=== PATIENT | female | born 2000 | race Caucasian/White ===

== ENCOUNTER → 2020-11-04 | Outpatient (CLI) | payer OTHER ==
[2020-11-04 15:17] LABS: HEMATOCRIT 39.8 % (36.0-47.0); HEMOGLOBIN 13.5 g/dl (12.0-15.5); MEAN CORPUSCULAR HEMOGLOBIN 30.8 pg (27.0-33.0); MEAN CORPUSCULAR HGB CONC 33.9 g/dl (32.0-36.5); MEAN CORPUSCULAR VOLUME 90.9 fl (80.0-96.0); PLATELET COUNT, AUTOMATED 321 10^3/uL (150-450); RED BLOOD COUNT 4.38 10^6/uL (4.00-5.40); WHITE BLOOD COUNT 15.7 10^3/uL (4.0-10.0)
[2020-11-04 16:35] LABS: HEPATITIS C VIRUS ABY INDEX < 0.0 INDEX (<0.8); HIV 1&2 SCREEN CENTAUR NEGATIVE (NEGATIVE)
[2020-11-04 17:12] LABS: GC DNA AMPLIFICATION NEGATIVE (NEGATIVE)
== END ==
LOC: M PLALAB 10:44
PROVIDERS: ATTEND Advanced Practice Midwife
DX: Z34.01 Encounter for supervision of normal first pregnancy, first trimester (principal)

== ENCOUNTER → 2020-12-02 | Outpatient (CLI) | payer OTHER | LOC: M PLALAB 10:58 | PROVIDERS: ATTEND Advanced Practice Midwife | DX: Z34.01 Encounter for supervision of normal first pregnancy, first trimester (principal); Z3A.12 12 weeks gestation of pregnancy ==

== ENCOUNTER → 2021-01-27 | Outpatient (CLI) | payer OTHER ==
--- NOTE | 2021-01-27 12:47 | REP ---
INDICATION: ANATOMY. COMPARISON: None. TECHNIQUE: Transabdominal scanning FINDINGS: Multiple ultrasonographic images of the gravid uterus shows a single living intrauterine gestation in the transverse presentation. The placenta is anterior and not low-lying. The cervix measures 3.6 cm length and is closed. Doppler interrogation of the heart shows a heart rate of 149 beats per minute. The subjective amniotic fluid volume is within normal limits. BPD: 4.9 cm 21 weeks 0 days HC: 18.0 cm 20 weeks 3 days AC: 14.6 cm 19 weeks 6 days FL: 3.4 cm 20 weeks 4 days The estimated weight is 343 g which is at the 44th percentile for a 20 week 2 day gestational age. The anatomical structures seen to be unremarkable are as follows: Thalami, cavum septum pellucidum, cerebellum, cisterna magna, cerebral ventricles, spine, kidneys, urinary bladder, stomach, cord insertion, three-vessel umbilical cord, upper lip, and extremities. Four-chamber heart and ventricular outflow tracts were suboptimally visualized. IMPRESSION: Single living intrauterine gestation as described above with an estimated gestational age of 20 weeks 3 days via composite criteria and an estimated date of delivery of 06/13/2021 by today's exam. No anomalies were detected, however, recommend a follow-up examination for optimal visualization of a four-chamber heart and ventricular outflow tracts. <Electronically signed by Nimesh Rodriguez > 01/27/21 [id number]
== END ==
LOC: M WHC 10:42
PROVIDERS: ATTEND Advanced Practice Midwife
DX: Z36.89 Encounter for other specified antenatal screening (principal); Z3A.16 16 weeks gestation of pregnancy

== ENCOUNTER → 2021-02-18 | Outpatient (CLI) | payer OTHER ==
--- NOTE | 2021-02-18 11:14 | REP ---
INDICATION: F/U ANATOMY COMPARISON: 01/27/2021 TECHNIQUE: Transabdominal obstetrical ultrasound with color Doppler evaluation. FINDINGS: Examination demonstrates a single live intrauterine in variable presentation. motion is identified by technologist. Placenta is noted anterior and grade 0 without evidence for placenta previa or abruption. Amniotic fluid volume is normal. Cervix measures 3.5 cm in length and appears closed.. Selected gestational age: 23 weeks 3 days with PAOLO 06/14/2021. Gestational age by current measurements 23 weeks 3 days with PAOLO 06/14/2021. FHR equals 143 beats per minute. Estimated weight 600 grams (45thpercentile). Anatomical assessment demonstrates normal structures including four-chamber heart/ventricular outflow tracts.. IMPRESSION: Single live intrauterine in variable presentation demonstrating appropriate interval growth. In conjunction with prior examination anatomical assessment is complete and normal. <Electronically signed by Noman Warren > 02/18/21 [id number]
== END ==
LOC: M WHC 09:45
PROVIDERS: ATTEND Advanced Practice Midwife
DX: Z34.02 Encounter for supervision of normal first pregnancy, second trimester (principal)

== ENCOUNTER → 2021-03-29 | Outpatient (CLI) | payer OTHER ==
[2021-03-29 15:44] LABS: HEMATOCRIT 37.7 % (36.0-47.0); HEMOGLOBIN 12.7 g/dl (12.0-15.5); MEAN CORPUSCULAR HEMOGLOBIN 31.6 pg (27.0-33.0); MEAN CORPUSCULAR HGB CONC 33.7 g/dl (32.0-36.5); MEAN CORPUSCULAR VOLUME 93.8 fl (80.0-96.0); PLATELET COUNT, AUTOMATED 286 10^3/uL (150-450); RED BLOOD COUNT 4.02 10^6/uL (4.00-5.40); WHITE BLOOD COUNT 11.6 10^3/uL (4.0-10.0)
== END ==
LOC: M PLALAB 11:14
PROVIDERS: ATTEND Advanced Practice Midwife
DX: Z34.02 Encounter for supervision of normal first pregnancy, second trimester (principal)

== ENCOUNTER → 2021-04-28 | Outpatient (CLI) | payer OTHER ==
[~2021-04-28] MED LIST: LABE20TAB PO; PRENTAB9 PO
== END ==
LOC: M WHC 13:18
PROVIDERS: ATTEND Obstetrics & Gynecology
DX: O26.843 Uterine size-date discrepancy, third trimester (principal); Z3A.33 33 weeks gestation of pregnancy

== ENCOUNTER → 2021-05-28 | Outpatient (REF) | payer OTHER | LOC: M SFHCWAGY 12:39 | PROVIDERS: ATTEND Advanced Practice Midwife | DX: Z34.03 Encounter for supervision of normal first pregnancy, third trimester (principal) ==

== ENCOUNTER 2021-06-15 20:27 | Inpatient (IN) | payer OTHER ==
[2021-06-15] VITALS (14 sets, daily range): BP systolic 122–153; BP diastolic 70–87
[~2021-06-15] VITALS: Ht 167.6 cm; Wt 76.2 kg
[2021-06-15] MEDS ORDERED: LACTATED RINGER'S 1000 ML IV STA ×2 (21:17→21:37)
[2021-06-15] MEDS ORDERED: PENICILLIN G POTASSIUM IV 5 MU in D5W MINI-BAG PLUS 100 ML IV STA (21:37)
[2021-06-15] MEDS ORDERED: OXYTOCIN DRIP 30 UNITS in IV 1 EA IV PRN (21:40)
[2021-06-15] MEDS ORDERED: CARBOPROST TROMETHAMINE 250 MCG/ML AMP IM PRN (21:40)
[2021-06-15] MEDS ORDERED: TRANEXAMIC ACID INJection 1,000 MG in NS 100 ML IV PRN (21:40)
[2021-06-15] MEDS ORDERED: LIDOCAINE 1% MDV 20ML VIAL INFIL PRN (21:40)
[2021-06-15] MEDS ORDERED: METHYLERGONOVINE MALEATE 0.2 MG/ML VIAL (J2210) IM PRN (21:40)
[2021-06-15 21:42] LABS: HEMATOCRIT 41.5 % (36.0-47.0); HEMOGLOBIN 14.3 g/dl (12.0-15.5); MEAN CORPUSCULAR HGB CONC 34.5 g/dl (32.0-36.5); MEAN CORPUSCULAR VOLUME 89.8 fl (80.0-96.0); PLATELET COUNT, AUTOMATED 260 10^3/uL (150-450); RED BLOOD COUNT 4.62 10^6/uL (4.00-5.40); WHITE BLOOD COUNT 14.5 10^3/uL (4.0-10.0)
[2021-06-15] MEDS ORDERED: FENTANYL 2MCG/ML ROPIVACAINE 0.2% IN 0.9% NACL 100ML IVBAG As Ordered ONE (22:03)
[2021-06-15] MEDS ORDERED: EPIDURAL/PCA KEYS XX PRN (22:40)
[2021-06-15] MEDS ORDERED: LACTATED RINGER'S 1000 ML IV PRN (22:40)
[2021-06-15] MEDS ORDERED: diphenhydrAMINE 50MG/ML VIAL (J1200) IV PRN (22:40)
[2021-06-15] MEDS: FENTANYL/ROPIVACAINE/NACL BAG 100 ML EPIDURAL SCH (22:40)
[2021-06-15] MEDS ORDERED: ePHEDrine SULFATE 25 MG/5 ML(5MG/ML) SYRINGE IV PRN (22:40)
[2021-06-15] MEDS ORDERED: EPIDURAL COMMENT XX SCH (22:40)
[2021-06-15] MEDS ORDERED: NALOXONE INJ 0.4MG/1ML VIAL (J2310 PER 1MG) IV PRN (22:40)
[2021-06-15] MEDS ORDERED: ONDANSETRON 4MG/2ML VIAL IV PRN (22:40)
[2021-06-15] MEDS ORDERED: REFRIGERATOR IV KEYS XX PRN (22:40)
[2021-06-15] MEDS: LR 1,000 ML IV SCH (23:45)
[2021-06-16] VITALS (38 sets, daily range): BP systolic 117–162; BP diastolic 57–98
[2021-06-16] MEDS ORDERED: OXYTOCIN 30 UNITS IN 0.9% NaCl 500ML IV BAG (J2590) As Ordered ONE (01:53)
[2021-06-16] MEDS: PENICILLIN G POTASSIUM IV 2.5 MU in IV 1 EA IV SCH ×2 (02:00→06:00)
[2021-06-16] MEDS: LR 1,000 ML IV SCH (02:01)
[2021-06-16] MEDS ORDERED: OXYTOCIN DRIP 30 UNITS in IV 1 EA IV SCH (02:05)
[2021-06-16] MEDS: FENTANYL/ROPIVACAINE/NACL BAG 100 ML EPIDURAL SCH (07:07)
[2021-06-16] MEDS ORDERED: ACETAMINOPHEN 500 MG TAB PO PRN ×2 (07:40→11:20)
[2021-06-16 10:56] LABS: CORD GAS ABE V -6.2; CORD GAS HCO3 V 20.1 MEQ/L; CORD GAS O2 SAT V 42.8 %; CORD GAS PCO2 V 42.4 mmHg; CORD GAS PH V 7.293 UNITS; CORD GAS PO2 V 18.7 mmHg; CORD GAS SBC V 18.1 MEQ/L; CORD GAS TCO2 V 21.4 MEQ/L
[2021-06-16] MEDS ORDERED: DIBUCAINE 1% OINTMENT 30GM TOP PRN (11:20)
[2021-06-16] MEDS ORDERED: MEASLES,MUMPS,RUBELLA VACCINE INJ (MMR-II) (90707) SC SCH (11:20)
[2021-06-16] MEDS ORDERED: DOCUSATE SODIUM 100MG CAPSULE PO PRN (11:20)
[2021-06-16] MEDS ORDERED: ACETAMINOPHEN TAB 650MG DOSE (2X325MG) PO PRN (11:20)
[2021-06-16] MEDS ORDERED: IBUPROFEN 600MG TAB PO PRN (11:20)
[2021-06-16] MEDS ORDERED: RHOGAM 300 MCG (1500 IU) INJ (J2790) IM SCH (11:20)
[2021-06-16] MEDS ORDERED: PRENTAB9 PO (13:11)
[2021-06-16] MEDS: IBUPROFEN 800 MG TAB PO PRN (17:48)
[2021-06-17 06:03] VITALS: BP 151/91
[2021-06-17] MEDS: PRENATAL VITAMINS CHEWABLE TABLET PO SCH (09:34)
[2021-06-17] MEDS: IBUPROFEN 800 MG TAB PO PRN ×2 (09:37→18:15)
[2021-06-17 18:00] VITALS: BP 164/90
[2021-06-17] MEDS: LABETALOL 200 MG TAB PO SCH (18:38)
[2021-06-17 19:20] VITALS: BP 127/76
[2021-06-17 22:00] VITALS: BP 139/81
[2021-06-18 02:00] VITALS: BP 141/79
[2021-06-18] MEDS: IBUPROFEN 800 MG TAB PO PRN (02:50)
[2021-06-18 05:56] VITALS: BP 144/88
[2021-06-18 08:04] VITALS: BP 132/80
[2021-06-18] MEDS: LABETALOL 200 MG TAB PO SCH (08:04)
[2021-06-18] MEDS: PRENATAL VITAMINS CHEWABLE TABLET PO SCH (08:04)
[2021-06-18] MEDS ORDERED: LABE20TAB PO (10:19)
== END 2021-06-18 11:37 | disposition home or self-care (01) | DRG 807 ==
LOC: M LDO 20:27 → M LDI 21:02 → M OBS 06-16 13:02
PROVIDERS: ADMIT Obstetrics & Gynecology; ATTEND Advanced Practice Midwife
PROC: 10E0XZZ Delivery of Products of Conception, External Approach (ICD-10-PCS; principal; 2021-06-16)
PROC: 10907ZC Drainage of Amniotic Fluid, Therapeutic from Products of Conception, Via Natural or Artificial Opening (ICD-10-PCS; 2021-06-16)
DX: O99.824 Streptococcus B carrier state complicating childbirth (principal); Z37.0 Single live birth; Z3A.40 40 weeks gestation of pregnancy; O14.94 Unspecified pre-eclampsia, complicating childbirth

== ENCOUNTER → 2022-01-04 | Outpatient (REF) | payer OTHER | LOC: M SFHCWAGY 10:05 | PROVIDERS: ATTEND Advanced Practice Midwife | DX: Z12.4 Encounter for screening for malignant neoplasm of cervix (principal) ==